=== PATIENT | male | born 1945 | race Caucasian/White ===

== ENCOUNTER 2019-10-16 11:55 | Outpatient (CLI) | payer MEDICARE | END 2019-10-16 11:56 | disposition home or self-care (01) | LOC: LAB.S 11:55 | PROVIDERS: ATTEND Family Medicine | DX: I48.91 Unspecified atrial fibrillation (principal) | CPT/HCPCS: 85610 ==

== ENCOUNTER 2021-09-23 13:11 | Outpatient (CLI) | payer MEDICARE | END 2021-09-23 13:12 | disposition home or self-care (01) | LOC: LAB.S 13:11 | PROVIDERS: ATTEND Family Medicine | DX: Z79.01 Long term (current) use of anticoagulants (principal); Z51.81 Encounter for therapeutic drug level monitoring | CPT/HCPCS: 36416; 85610 ==

== ENCOUNTER 2021-11-04 13:23 | Outpatient (CLI) | payer MEDICARE ==
[2021-11-04 14:30] LABS: HGB - HEMOGLOBIN 15.8 g/dL (14.0-18.0); MEAN CORPUSCULAR HEMOGLOBIN 30.3 pg (27.0-31.0); MEAN CORPUSCULAR HGB CONC 33.6 g/dL (32.0-36.0); MEAN CORPUSCULAR VOLUME 90.2 fL (80.0-94.0); MEAN PLATELET VOLUME 10.7 fL (7.4-11.4); RED BLOOD COUNT 5.21 10^6/uL (4.70-6.10); RED CELL DISTRIBUTION WIDTH 13.3 % (12.0-15.0); WHITE BLOOD COUNT 9.5 x10^3/uL (4.8-10.8)
[2021-11-04 14:36] LABS: INR 1.6 (0.8-1.2); PT - PROTHROMBIN TIME 17.9 secs (9.9-12.6)
== END 2021-11-04 13:24 | disposition home or self-care (01) ==
LOC: LAB.S 13:23
PROVIDERS: ATTEND Family Medicine
DX: Z51.81 Encounter for therapeutic drug level monitoring (principal); Z79.01 Long term (current) use of anticoagulants; I48.91 Unspecified atrial fibrillation
CPT/HCPCS: 36415; 85027; 85610

== ENCOUNTER 2021-11-25 14:34 | Outpatient (CLI) | payer MEDICARE | END 2021-11-25 14:35 | disposition home or self-care (01) | LOC: LAB.S 14:34 | PROVIDERS: ATTEND Family Medicine | DX: Z51.81 Encounter for therapeutic drug level monitoring (principal); Z79.01 Long term (current) use of anticoagulants | CPT/HCPCS: 36416; 85610 ==

== ENCOUNTER 2022-05-13 11:14 | Outpatient (CLI) | payer MEDICARE | END 2022-05-13 11:15 | disposition home or self-care (01) | LOC: LAB.S 11:14 | PROVIDERS: ATTEND Family Medicine | DX: I48.91 Unspecified atrial fibrillation (principal) | CPT/HCPCS: 36416; 85610 ==

== ENCOUNTER 2022-06-28 11:45 | Outpatient (CLI) | payer MEDICARE | END 2022-06-28 11:46 | disposition home or self-care (01) | LOC: LAB.S 11:45 | PROVIDERS: ATTEND Family Medicine | DX: I48.91 Unspecified atrial fibrillation (principal) | CPT/HCPCS: 36416; 85610 ==

== ENCOUNTER 2022-08-11 07:00 | Outpatient (CLI) | payer MEDICARE | END 2022-08-11 23:59 | disposition home or self-care (01) | LOC: LAB.S 07:00 | PROVIDERS: ATTEND Family Medicine | DX: I48.91 Unspecified atrial fibrillation (principal) | CPT/HCPCS: 36416; 85610 ==

== ENCOUNTER 2022-09-24 11:49 | Outpatient (CLI) | payer MEDICARE | END 2022-09-24 11:50 | disposition home or self-care (01) | LOC: LAB.S 11:49 | PROVIDERS: ATTEND Family Medicine | DX: I48.91 Unspecified atrial fibrillation (principal) | CPT/HCPCS: 36416; 85610 ==

== ENCOUNTER 2022-10-18 14:21 | Outpatient (CLI) | payer MEDICARE | END 2022-10-18 14:22 | disposition home or self-care (01) | LOC: LAB.S 14:21 | PROVIDERS: ATTEND Family Medicine | DX: I48.91 Unspecified atrial fibrillation (principal) | CPT/HCPCS: 36416; 85610 ==

== ENCOUNTER 2022-11-30 11:14 | Outpatient (CLI) | payer MEDICARE | END 2022-11-30 11:15 | disposition home or self-care (01) | LOC: LAB.S 11:14 | PROVIDERS: ATTEND Family Medicine | DX: I48.91 Unspecified atrial fibrillation (principal) | CPT/HCPCS: 36416; 85610 ==

== ENCOUNTER 2023-01-12 11:11 | Outpatient (CLI) | payer MEDICARE | END 2023-01-12 11:12 | disposition home or self-care (01) | LOC: LAB.S 11:11 | PROVIDERS: ATTEND Family Medicine | DX: I48.91 Unspecified atrial fibrillation (principal) | CPT/HCPCS: 36416; 85610 ==

== ENCOUNTER 2023-03-01 10:47 | Outpatient (CLI) | payer MEDICARE | END 2023-03-01 10:48 | disposition home or self-care (01) | LOC: LAB.S 10:47 | PROVIDERS: ATTEND Family Medicine | DX: I48.91 Unspecified atrial fibrillation (principal) | CPT/HCPCS: 36416; 85610 ==

== ENCOUNTER 2023-04-14 10:32 | Outpatient (CLI) | payer MEDICARE | END 2023-04-14 10:33 | disposition home or self-care (01) | LOC: LAB.S 10:32 | PROVIDERS: ATTEND Family Medicine | DX: I48.91 Unspecified atrial fibrillation (principal) | CPT/HCPCS: 36416; 85610 ==

== ENCOUNTER 2023-05-18 11:50 | Outpatient (CLI) | payer MEDICARE | END 2023-05-18 11:51 | disposition home or self-care (01) | LOC: LAB.S 11:50 | PROVIDERS: ATTEND Family Medicine | DX: I48.91 Unspecified atrial fibrillation (principal) | CPT/HCPCS: 36416; 85610 ==

== ENCOUNTER 2023-06-01 11:21 | Outpatient (CLI) | payer MEDICARE | END 2023-06-01 11:22 | disposition home or self-care (01) | LOC: LAB.S 11:21 | PROVIDERS: ATTEND Family Medicine | DX: I48.91 Unspecified atrial fibrillation (principal) | CPT/HCPCS: 36416; 85610 ==

== ENCOUNTER 2023-06-15 11:37 | Outpatient (CLI) | payer MEDICARE | END 2023-06-15 11:38 | disposition home or self-care (01) | LOC: LAB.S 11:37 | PROVIDERS: ATTEND Family Medicine | DX: I48.91 Unspecified atrial fibrillation (principal) | CPT/HCPCS: 36416; 85610 ==

== ENCOUNTER 2023-07-12 13:40 | Outpatient (CLI) | payer MEDICARE | END 2023-07-12 13:41 | disposition home or self-care (01) | LOC: LAB.S 13:40 | PROVIDERS: ATTEND Family Medicine | DX: I48.91 Unspecified atrial fibrillation (principal) | CPT/HCPCS: 36416; 85610 ==

== ENCOUNTER 2023-08-04 11:27 | Outpatient (CLI) | payer MEDICARE | END 2023-08-04 11:28 | disposition home or self-care (01) | LOC: LAB.S 11:27 | PROVIDERS: ATTEND Family Medicine | DX: I48.91 Unspecified atrial fibrillation (principal) | CPT/HCPCS: 36416; 85610 ==

== ENCOUNTER 2023-09-05 11:33 | Outpatient (CLI) | payer MEDICARE | END 2023-09-05 11:34 | disposition home or self-care (01) | LOC: LAB.S 11:33 | PROVIDERS: ATTEND Family Medicine | DX: I48.91 Unspecified atrial fibrillation (principal) | CPT/HCPCS: 36416; 85610 ==

== ENCOUNTER 2023-09-12 11:00 | Outpatient (CLI) | payer MEDICARE | END 2023-09-12 11:01 | disposition home or self-care (01) | LOC: LAB.S 11:00 | PROVIDERS: ATTEND Family Medicine | DX: I48.91 Unspecified atrial fibrillation (principal) | CPT/HCPCS: 36416; 85610 ==

== ENCOUNTER 2023-09-26 13:27 | Outpatient (CLI) | payer MEDICARE | END 2023-09-26 13:28 | disposition home or self-care (01) | LOC: LAB.S 13:27 | PROVIDERS: ATTEND Family Medicine | DX: I48.91 Unspecified atrial fibrillation (principal) | CPT/HCPCS: 36416; 85610 ==

== ENCOUNTER 2023-10-10 10:44 | Outpatient (CLI) | payer MEDICARE | END 2023-10-10 10:45 | disposition home or self-care (01) | LOC: LAB.S 10:44 | PROVIDERS: ATTEND Family Medicine | DX: I48.91 Unspecified atrial fibrillation (principal) | CPT/HCPCS: 36416; 85610 ==

== ENCOUNTER 2023-10-24 11:07 | Outpatient (CLI) | payer MEDICARE | END 2023-10-24 11:08 | disposition home or self-care (01) | LOC: LAB.S 11:07 | PROVIDERS: ATTEND Family Medicine | DX: I48.91 Unspecified atrial fibrillation (principal) | CPT/HCPCS: 36416; 85610 ==

== ENCOUNTER 2023-11-16 11:18 | Outpatient (CLI) | payer MEDICARE | END 2023-11-16 11:19 | disposition home or self-care (01) | LOC: LAB.S 11:18 | PROVIDERS: ATTEND Family Medicine | DX: I48.91 Unspecified atrial fibrillation (principal) | CPT/HCPCS: 36416; 85610 ==

== ENCOUNTER 2024-02-28 13:02 | Outpatient (CLI) | payer MEDICARE | END 2024-02-28 23:59 | disposition short-term general hospital (02) | LOC: EMS 13:02 | DX: R53.1 Weakness (principal); R42 Dizziness and giddiness; R55 Syncope and collapse; R07.9 Chest pain, unspecified; R61 Generalized hyperhidrosis; I10 Essential (primary) hypertension; R00.1 Bradycardia, unspecified | CPT/HCPCS: A0425; A0427 ==